=== PATIENT | male | born 2000 | race Two or more races ===

== ENCOUNTER → 2021-02-22 | Outpatient (REF) | payer SELFPAY ==
[2021-02-22 17:44] LABS: GC DNA AMPLIFICATION NEGATIVE (NEGATIVE)
== END ==
LOC: M LAB REF 14:53
PROVIDERS: ATTEND Physician Assistant Medical
DX: Z11.3 Encounter for screening for infections with a predominantly sexual mode of transmission (principal)

== ENCOUNTER → 2021-10-30 | Outpatient (REF) | LOC: M PLAIMG 10:20 | PROVIDERS: ATTEND Internal Medicine | DX: R06.02 Shortness of breath (principal) ==

== ENCOUNTER 2022-02-22 07:50 | Emergency (ER) | payer OTHER ==
[~2022-02-22] VITALS: Ht 188 cm; Wt 88.0 kg
[2022-02-22] MEDS ORDERED: KETO10TAB PO (10:35)
[2022-02-22] MEDS ORDERED: METH-1165 PO (10:35)
[2022-02-22 10:42] VITALS: BP 119/74
== END 2022-02-22 10:43 | disposition home or self-care (01) ==
LOC: M ED 07:50
DX: S30.0XXA Contusion of lower back and pelvis, initial encounter (principal); M62.830 Muscle spasm of back; W17.89XA Other fall from one level to another, initial encounter; F41.9 Anxiety disorder, unspecified; F33.1 Major depressive disorder, recurrent, moderate; Y92.9 Unspecified place or not applicable; Y93.9 Activity, unspecified; Y99.1 Military activity